=== PATIENT | male | born 1990 | race African-American/Black ===

== ENCOUNTER 2017-10-11 14:28 | Observation (INO) | payer OTHER ==
[2017-10-11] MEDS ORDERED: NS 0.9% 1000 ML* 1,000 ML IV ONE (15:57)
[2017-10-11 16:38] LABS: ABS Basophils 0 10^3/ul (0-0.2); ABS Eosinophils 0 10^3/ul (0-0.6); ABS Lymphocytes 0.9 10^3/ul (1.0-4.8); ABS Monocytes 0.8 10^3/ul (0-0.8); ABS Neutrophils 11.2 10^3/ul (1.5-7.7); ABS Nucleated RBC 0 10^3/ul; Eosinophil % 0.1 % (0-6); Hematocrit 46 % (42-52); Hemoglobin 15.8 g/dl (14.0-18.0); Lymphocyte % 7.2 % (25-47); Mean Corpuscular HGB Conc 34 g/dl (31-36); Mean Corpuscular Hemoglobin 32 pg (27-31); Mean Corpuscular Volume 92 fL (80-94); Mean Platelet Volume 8 um3 (7.4-10.4); Nucleated Red Blood Cells % 0; Platelet Count 188 10^3/ul (150-450); Red Blood Count 5.03 10^6/ul (4.0-5.4); Red Cell Distribution Width 13 % (10.5-15); White Blood Count 12.9 10^3/ul (3.5-10.8)
[2017-10-11 16:54] LABS: EGFR Non-African American 101.2 (>60)
--- NOTE | 2017-10-11 18:32 | RAD ---
Indication: Syncope. CT of the brain was performed without IV contrast. Ventricular structures are midline. No midline shift is noted. The extra-axial spaces are unremarkable. There is no evidence of intracranial mass or hemorrhage. No other high or low density lesions are identified. Mastoid air cells and paranasal sinuses are otherwise unremarkable. IMPRESSION: No intracranial mass or hemorrhage is noted.
--- NOTE | 2017-10-11 18:51 | RAD ---
Indication: Syncope. 2 views of the chest including dual energy PA views demonstrate no mediastinal shift. Heart is of normal size and configuration. Lung uriarte appear clear. IMPRESSION: No active cardiopulmonary disease is noted.
[2017-10-11] MEDS ORDERED: Ondansetron INJ* 2 MG/ML VIAL IV PRN (18:53)
[2017-10-11 19:10] LABS: Urine Appearance Clear; Urine Blood Negative (Negative); Urine Color Yellow; Urine Ketones Negative (Negative); Urine Protein Negative (Negative); Urine Specific Gravity 1.019 (1.010-1.030); Urine Urobilinogen Negative (Negative)
--- NOTE | 2017-10-11 19:40 | RAD ---
Indication: Overdose. Flat plate of the abdomen demonstrates bowel gas pattern to be unremarkable. Psoas margins are intact. No dilated loops of bowel are noted. IMPRESSION: NO EVIDENCE OF FOREIGN BODY IS NOTED. ABDOMEN FILM IS OTHERWISE UNREMARKABLE.
[2017-10-11] MEDS: NS 0.9% 1000 ML* 1,000 ML IV SCH (22:22)
--- NOTE | 2017-10-11 22:56 | HP ---
[facility]c: [facility] [[email or web address]* HISTORY AND PHYSICAL: DATE OF ADMISSION: 10/11/17 PRIMARY CARE PROVIDER: [facility]. ATTENDING PROVIDER: Dr. Meyers * (DICTATED BY CLAUDIA KNOTT NP) CHIEF COMPLAINT: Overdose. HISTORY OF PRESENT ILLNESS: Mr. Vora is a 26-year-old male patient residing at [facility]. Apparently today, he was in a mess up. He smoked and ingested some K2 synthetic marijuana; shortly thereafter became unresponsive. Inmates there responded and tried to get him awake, they pinched his skin; you can see the bruising on his pectoral area on the right and left side. They threw water on him. They were unable to get him up. The COs responded, they picked him up. He was not really responding, brought him to [facility], and they sent him to the hospital. He is awaking now but pretty drowsy. He says he took K2 this morning and he says that to his knowledge there was no other drugs in the list of material in the K2 but he is unaware. He says he did not ingest anything. He has been slow to awaken. He has been here in the ED for about 4 hours. He is still pretty drowsy. He has got dilated pupils. His sclerae does appear to be reddened and erythematic. He denied any chest pain and denies any abdominal pain. Says he did not hit his head to his knowledge. He denies any chest discomfort or any palpitations. There was concern because of the overdose and his slow response to come out of it, we were asked to evaluate for admission. PAST MEDICAL HISTORY: Denied. PAST SURGICAL HISTORY: Denied. MEDICATIONS: Home meds are none. ALLERGIES: No known drug allergies. FAMILY HISTORY: Specifically reviewed. He says his mother and father do not have any history of heart attack, strokes, cancers or diabetes. SOCIAL HISTORY: He does smoke cigarettes on a daily basis. He says he does not drink alcohol and denies any other recreational drug abuse with the exception of marijuana. REVIEW OF SYSTEMS: There is no documented fever. He denied any significant weight change. No double vision, no ear discharge. He denies having any rhinorrhea. No sore throat. No thyroid enlargement. Denies having any chest pain. There is no orthopnea, there is no nocturnal dyspnea and denies having any abdominal pain. No nausea, no vomiting, no dysuria, no frequency. There is no seizure. There was question of loss of consciousness, we are unsure, could be related to the overdose. Review of 14 systems was completed, all others negative. PHYSICAL EXAMINATION GENERAL: At this time, Mr. Vora is a 26-year-old male patient. He is sitting in the ED stretcher. He does not appear to be in acute distress. He appears well- nourished, well-developed. VITAL SIGNS: Blood pressure 108/68, pulse 73, respirations 12, O2 sat 97%, temperature 96.3. HEENT: Head atraumatic, normocephalic. Eyes: EOMs intact. There is nystagmus horizontally. Sclerae anicteric and was reddened. Pupils react to light. Throat: Oral mucosa appears to be dry. No oropharyngeal erythema. NECK: Supple. LUNGS: Clear to auscultation. No wheezes, rubs, or rhonchi. HEART: Sounds S1, S2. Regular rate and rhythm. No murmurs rubs or gallops. ABDOMEN: Soft, flat. Nontender. Bowel sounds are present. EXTREMITIES: Pulses were 2+ throughout. He is moving all 4 extremities with 5/ 5 strength. NEUROLOGIC: He is drowsy but he awakens to his name, he is alert. He is oriented x3. His fountain vending mechanic are equal. Tongue midline. Quickly falls back during my exam but he will awaken to voice now but previously he was not. No gross focal deficits. SKIN: Intact with the exception that he does have some what appears to be bruising in the right and left pectoral area. LABORATORY DATA: WBC 12.9, RBC of 5.03, hemoglobin 15.8, hematocrit 46, platelet count 188. Sodium 136, potassium 4.9, chloride 102, bicarb of 29, BUN 9, creatinine of 0.09. Glucose 109, calcium 9.9. Total bili 0.5, AST 15, ALT 14, alk phos 46, CK 222, CK-MB 1.9, troponin 0. Albumin 4.7. Toxicology thus far is negative for salicylates, Tylenol or serum alcohol. TSH was 0.19. He did have a chest x-ray obtained today and to my impression, I did not appreciate any acute infiltrate. Radiology read this as an no active cardiopulmonary disease. He did have a brain CT obtained today which said no intracranial mass or hemorrhage is noted. He did have an EKG, he does have have diffuse J-point elevation, and rate of 71. No previous EKG for comparison. Old medical records reviewed. ASSESSMENT AND PLAN: Mr. Vora is a 26-year-old male patient coming into the ED today with complaints of an overdose of K2. He will be admitted under observation status for: 1. K2 overdose, synthetic marijuana. I did discuss the case with poison control. They they recommended supportive care, we are awaiting on the drug tox screen at this point. He is slowly coming back to his baseline. It is unclear if this may have been laced with any illicit agents, but we will continue to follow him closely, offer supportive care and poison control has been contacted. We will get neuro checks every [address] him on telemetry, hydrate the patient aggressively and we will continue to follow him. I am getting x-ray of the abdomen, on x-ray he did not have any ingestion of foreign bodies. 2. Low TSH: We will check the thyroid, we will check his T4, T3 studies. We will get thyroid antibody studies and can follow this up with [facility] for the time being. 3. Code status: Full code. 4. Fluid, electrolytes and nutrition. He can have a regular diet if he awakens enough and will have normal saline at 150 an hour. 5. DVT prophylaxis: SCDs. 6. Code status: Full code. TIME SPENT: Time spent on the admission was 60 minutes, greater than half of the time was spent [id number] with the patient obtaining history and physical , the other half of the time was spent going over the plan of care with the patient and implementing the plan of care. I did discuss plan of care with my attending, Dr. Meyers, who is in agreement. CLAUDIA KNOTT, LISSETTE [id number]/[facility] #: [id number] MAGDI
[2017-10-12] MEDS: NS 0.9% 1000 ML* 1,000 ML IV SCH ×2 (05:07→11:57)
[2017-10-12 06:34] LABS: ABS Basophils 0 10^3/ul (0-0.2); ABS Eosinophils 0.1 10^3/ul (0-0.6); ABS Lymphocytes 1.8 10^3/ul (1.0-4.8); ABS Monocytes 0.4 10^3/ul (0-0.8); ABS Neutrophils 3.9 10^3/ul (1.5-7.7); ABS Nucleated RBC 0 10^3/ul; Eosinophil % 2.1 % (0-6); Hematocrit 43 % (42-52); Hemoglobin 14.9 g/dl (14.0-18.0); Lymphocyte % 28.2 % (25-47); Mean Corpuscular HGB Conc 35 g/dl (31-36); Mean Corpuscular Hemoglobin 32 pg (27-31); Mean Corpuscular Volume 91 fL (80-94); Mean Platelet Volume 8 um3 (7.4-10.4); Nucleated Red Blood Cells % 0.1; Platelet Count 174 10^3/ul (150-450); Red Blood Count 4.74 10^6/ul (4.0-5.4); Red Cell Distribution Width 13 % (10.5-15); White Blood Count 6.2 10^3/ul (3.5-10.8)
[2017-10-12 06:57] LABS: INR 0.94 (0.77-1.02)
[2017-10-12 16:34] VITALS: BP 112/66
--- NOTE | 2017-10-13 02:17 | DS ---
CC: [facility], Daria Muarer NP * DISCHARGE SUMMARY: DATE OF ADMISSION: 10/11/17 DATE OF DISCHARGE: 10/12/17 DISCHARGE DIAGNOSIS: Intoxication with synthetic marijuana "K2". SECONDARY DIAGNOSIS: None. MEDICATIONS AT DISCHARGE: None. The patient is instructed to ambulate with assistance until his intoxication resolves. Currently, at discharge, the patient has no problems with walking. He is alert and oriented, but his gait is still mildly unsteady due to intoxication. HOSPITALIZATION COURSE: Bo Vora is a 26-year-old prisoner of [facility], who presented to the hospital after he was found unresponsive in custodial. He was treated with Narcan and he regained consciousness somewhat. He was brought in to emergency department for evaluation, where he was placed on supportive intravenous hydration. Poison Control was notified about this occurrence and recommended supportive treatment. By the time of discharge, the patient eats independently and he is able to converse, although he still appears to be slightly intoxicated and has unsteady gait due to that. At this point, the patient is being transferred back to [facility] for continuation of observation in the [facility] and to ambulate with assistance. PHYSICAL EXAMINATION: At the time of discharge, blood pressure of 101/62, heart rate of 64 and regular, respiratory rate 18, oxygen saturation 95% on room air, temperature 98.1. General: The patient is a very pleasant 26-year- old male who is in no acute distress. Alert, awake, and oriented x3. HEENT: Head: Atraumatic, normocephalic. Eyes: Pupils are equal, reactive to light and accommodation. Oropharynx is clear. Mucosa moist. Neck: Supple. No JVD. No bruits bilaterally. Cardiovascular: Regular rate and rhythm. No murmur. Respiratory: Clear to auscultation bilaterally. Abdomen: Soft, nontender. Bowel sounds are present in all 4 quadrants. Extremities: There is no edema. Pulses are +2 bilaterally. No clubbing or cyanosis. Neuro Evaluation : Speech clear. Cranial nerves II through XII grossly intact. Motor strength is 5/5 bilaterally. Psychiatric Evaluation: The patient is mildly intoxicated and mildly slow to response, but oriented x3. His gait is mildly unsteady and he needs to ambulate with assistance. Please note that this is a short summary of the patient's hospital stay. Please refer to further medical records for details. [id number]/[facility] #: [id number] MTDD
--- NOTE | 2017-10-13 08:16 | ED ---
Phillip Pickett Angela, scribed for Scott Berrios MD on 10/11/17 at 1559 . Substance Abuse/Use - HPI Summary HPI Summary: This pt is a 26 y/o male presenting to [facility] via EMS from [facility] for a possible overdose. EMS reports the pt was found unresponsive and was given IM Narcan x2. credit or loans officer state the pt passed out and was [facility]. Inmates tried to wake up the pt by putting cold water on him. Correctional officers state, pt reported he had allegedly taken K2 which was approximately taken around noon. Pt currently reports he is tired and has some SOB. HPI is limited due to level 5 caveat - pt is lethargic. - History Of Current Complaint Chief Complaint: EDOverdose Stated Complaint: OVERDOSE Time Seen by Provider: 10/11/17 15:27 Hx Obtained From: Patient Hx From Patient Unobtainable Due To: Other - Level 5 caveat - pt is lethargic Onset/Duration of Drug/ETOH Abuse: Hours Ingestion History: Type/Name Of Drug - K2 Overdose Characteristics: Oral Severity Currently: Moderate Character: Lethargic Aggravating Factor(s): Nothing Alleviating Factor(s): Nothing Associated Signs And Symptoms: Shortness Of Breath, Other: - Lethargic, fatigue - Allergies/Home Medications Allergies/Adverse Reactions: Allergies Allergy/AdvReac Type Severity Reaction Status Date / Time No Known Allergies Allergy Verified 10/11/17 14:47 Home Medications: Home Medications NK [No Home Medications Reported] 10/11/17 [History Confirmed 10/11/17] PMH/Surg Hx/FS Hx/Imm Hx Endocrine/Hematology History: Denies: Hx Diabetes Cardiovascular History: Denies: Hx Hypertension Infectious Disease History: No Infectious Disease History: Denies: Traveled Outside the [place] in Last 30 Days - Family History Known Family History: Positive: Unknown - due to level 5 caveat - pt is lethargic - Social History Alcohol Use: None Substance Use Type: Reports: Marijuana Smoking Status (MU): Former Smoker Review of Systems - ROS Summary Review of Systems Summary: ROS is limited due to level 5 caveat - pt is lethargic. Positive: Fatigue. Negative: Fever, Chills Positive: Shortness Of Breath Neurological: Other - lethargic All Other Systems Reviewed And Are Negative: No Physical Exam - Summary Physical Exam Summary: VITAL SIGNS: Reviewed. GENERAL: Patient is a well-developed and nourished male who is lying comfortable in the stretcher. Patient is lethargic. HEAD AND FACE: No signs of trauma. No ecchymosis, hematomas or skull depressions. No sinus tenderness. EYES: PERRLA, EOMI x 2, No injected conjunctiva, no nystagmus. EARS: Hearing grossly intact. Ear canals and tympanic membranes are within normal limits. MOUTH: Oropharynx within normal limits. NECK: Supple, trachea is midline, no adenopathy, no JVD, no carotid bruit, no c- spine tenderness, neck with full ROM. CHEST: Symmetric, no tenderness at palpation LUNGS: Clear to auscultation bilaterally. No wheezing or crackles. CVS: Regular rate and rhythm, S1 and S2 present, no murmurs or gallops appreciated. ABDOMEN: Soft, non-tender. No signs of distention. No rebound no guarding, and no masses palpated. Bowel sounds are normal. EXTREMITIES: FROM in all major joints, no edema, no cyanosis or clubbing. NEURO: Alert and oriented x 3. No acute neurological deficits. Pt is lethargic. SKIN: Dry and warm Triage Information Reviewed: Yes Vital Signs On Initial Exam: Initial Vitals Temp Pulse Resp BP Pulse Ox 96.3 F 80 23 141/106 100 10/11/17 14:39 10/11/17 14:39 10/11/17 14:39 10/11/17 14:39 10/11/17 14:39 Vital Signs Reviewed: Yes Diagnostics - Vital Signs Vital Signs Temp Pulse Resp BP Pulse Ox 10/11/17 15:00 80 9 115/72 98 10/11/17 14:44 74 20 141/106 93 10/11/17 14:42 123 24 100 10/11/17 14:39 96.3 F 80 23 141/106 100 - Laboratory Lab Results: Lab Results 10/11/17 10/11/17 Range/Units 16:20 16:20 WBC 12.9 H (3.5-10.8) 10^3/ul RBC 5.03 (4.0-5.4) 10^6/ul Hgb 15.8 (14.0-18.0) g/dl Hct 46 (42-52) % MCV 92 (80-94) fL MCH 32 H (27-31) pg MCHC 34 (31-36) g/dl RDW 13 (10.5-15) % Plt Count 188 (150-450) 10^3/ul MPV 8 (7.4-10.4) um3 Neut % (Auto) 86.7 H (38-83) % Lymph % (Auto) 7.2 L (25-47) % Powell % (Auto) 5.9 (1-9) % Eos % (Auto) 0.1 (0-6) % Baso % (Auto) 0.1 (0-2) % Absolute Neuts (auto) 11.2 H (1.5-7.7) 10^3/ul Absolute Lymphs (auto) 0.9 L (1.0-4.8) 10^3/ul Absolute Monos (auto) 0.8 (0-0.8) 10^3/ul Absolute Eos (auto) 0 (0-0.6) 10^3/ul Absolute Basos (auto) 0 (0-0.2) 10^3/ul Absolute Nucleated RBC 0 10^3/ul Nucleated RBC % 0 Sodium 136 (133-145) mmol/L Potassium 4.9 (3.5-5.0) mmol/L Chloride 102 (101-111) mmol/L Carbon Dioxide 29 (22-32) mmol/L Anion Gap 5 (2-11) mmol/L BUN 9 (6-24) mg/dL Creatinine 0.90 (0.67-1.17) mg/dL Est GFR ( Amer) 130.2 (>60) Est GFR (Non-Af Amer) 101.2 (>60) BUN/Creatinine Ratio 10.0 (8-20) Glucose 109 H (70-100) mg/dL Calcium 9.9 (8.6-10.3) mg/dL Total Bilirubin 0.50 (0.2-1.0) mg/dL AST 15 (13-39) U/L ALT 14 (7-52) U/L Alkaline Phosphatase 46 (34-104) U/L Total Creatine Kinase 225 H (10-223) U/L CK-MB (CK-2) 1.9 (0.6-6.3) ng/mL Troponin I 0.00 (<0.04) ng/mL Total Protein 7.1 (6.4-8.9) g/dL Albumin 4.4 (3.2-5.2) g/dL Globulin 2.7 (2-4) g/dL Albumin/Globulin Ratio 1.6 (1-3) TSH 0.19 L (0.34-5.60) mcIU/mL Free T4 0.96 (0.61-1.12) ng/dL Thyroxine (T4) 7.82 (6.09-12.23) mcg/mL Free T3 3.40 (2.5-3.9) pg/mL Total T3 1.07 (0.87-1.78) ng/mL Salicylates < 2.50 (<30) mg/dL Acetaminophen < 15 mcg/mL Serum Alcohol < 10 (<10) mg/dL Result Diagrams: 10/12/17 06:26 10/12/17 06:26 Lab Statement: Any lab studies that have been ordered have been reviewed, and results considered in the medical decision making process. - Radiology Chest XR Xray Interpretation: No Acute Changes - IMPRESSION: No active cardiopulmonary disease is noted. Dr. Berrios has reviewed this radiology report. Radiology Interpretation Completed By: Radiologist - CT Brain CT CT Interpretation: No Acute Changes - IMPRESSION: No intracranial mass or hemorrhage is noted. Dr. Berrios has reviewed this radiology report. CT Interpretation Completed By: Radiologist - EKG 16:00 Cardiac Rate: NL EKG Rhythm: Sinus Rhythm - at 71 bpm EKG Interpretation: ST elevation in leads I, II, V4-V6. No reciprocal change. Course/Dx - Course Course Of Treatment: This pt is a 26 y/o male presenting to [facility] via EMS from [address] [place] [address] for a possible overdose. EMS reports the pt was found unresponsive and was given IM Narcan x2. credit or loans officer state the pt passed out and was [facility]. Inmates tried to wake up the pt by putting cold water on him. Correctional officers state, pt reported he had allegedly taken K2 which was approximately taken around noon. Pt currently reports he is tired and has some SOB. HPI is limited due to level 5 caveat - pt is lethargic. EKG shows NSR at [address] elevation in leads I, II, V4-V6. There is no reciprocal change. I immediately consulted with Dr. Talamantes, draw furnace tender, and he thinks the pt does not have an acute MD and the pt has a J point elevation. Test results without any significant abnormalities except WBC of 12.9, CPK of 225. Urinalysis is still pending. Chest XR shows no active cardiopulmonary disease is noted. Head CT is negative. The pt continues to be in AMS, possibly secondary to K2 ingestion. I discussed the pts case with Dr. Jacobson, hospitalist , who accepted the pt for admission. The pt is hemodynamically stable. - Diagnoses Differential Diagnosis/HQI/PQRI: Positive: Alcohol Abuse, Anxiety, Depression, Drug Abuse, Drug Withdrawal, Metabolic Disorder Provider Diagnoses: Altered mental status - Physician Notifications Discussed Care Of Patient With: Fidelia Jacobson Time Discussed With Above Provider: 17:40 Instructed by Provider To: Other - I discussed pt care with Dr. Jacobson, hospitalist, who has agreed to admit the pt. Discharge - Discharge Plan Condition: Improved Disposition: ADMITTED TO [facility] The documentation as recorded by the Phillip linder Angela accurately reflects the service I personally performed and the decisions made by me, Scott Berrios MD.
== END 2017-10-12 19:15 ==
LOC: EDBD → ED 14:28 → EEVIPCON 14:28 → MEDTELE 18:51
PROVIDERS: ADMIT Hospitalist; ATTEND Internal Medicine
DX: F12.929 Cannabis use, unspecified with intoxication, unspecified (principal); R41.82 Altered mental status, unspecified; R06.02 Shortness of breath; R53.83 Other fatigue; Z87.891 Personal history of nicotine dependence
CPT/HCPCS: 36415; 70450; 71046; 74018; 80048; 80053; 80307; 80320; 80329; 81003; 82550; 82553; 84436; 84439; 84443; 84479; 84480; 84481; 84484; 85025; 85610; 86376; 87086; 93005; 96361; 96374; 99284; G0378; G0480